=== PATIENT | female | born 1955 | race Caucasian/White ===

== ENCOUNTER 2018-11-18 21:05 | Emergency (ER) | payer MEDICAID ==
[~2018-11-18] VITALS: Wt 111.2 kg
[~2018-11-18 21:05] MED LIST: ASPRIN; ATEN-122 PO
[2018-11-18 21:10] VITALS: BP 182/101
[2018-11-18] MEDS ORDERED: KETOROLAC 30 MG INJ IM STA (21:39)
[2018-11-18] MEDS ORDERED: METHOCARBAMOL 750 MG TAB PO ONE (22:00)
[2018-11-18] MEDS ORDERED: DEXAMETHASONE 10 MG/ML 1 ML INJ IM ONE (22:00)
[2018-11-18] MEDS ORDERED: TYL500 PO (23:03)
[2018-11-18] MEDS ORDERED: IBUP-1542 PO (23:03)
[2018-11-18 23:43] VITALS: PULSE 91; RESP 20
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
== END 2018-11-18 23:38 | disposition home or self-care (01) ==
LOC: FTE 21:05
DX: M54.5 Low back pain (principal); I10 Essential (primary) hypertension; M25.561 Pain in right knee; Z79.82 Long term (current) use of aspirin
CPT/HCPCS: 72100; 73562; 93971; 96372; J1100; J1885; Z7502; Z7610

== ENCOUNTER → 2019-05-23 | Emergency (ER) | payer MEDICAID ==
[~2019-05-23] VITALS: Ht 165.1 cm; Wt 113.5 kg
[~2019-05-23] MED LIST changes: +BETA50CR5 TP; +DIPHENHYDRAMINE 25 MG CAP PO ONE; +HYDR-3029 PO; +IBUP-1542 PO; +TYL500 PO
[2019-05-23 07:55] VITALS: BP 172/86; PULSE 78; RESP 18; Ht 165.1 cm; Wt 113.5 kg
--- NOTE | 2019-05-23 09:28 | ERD ---
ER Documentation Chief Complaint Chief Complaint possible insect bites on arms and legs HPI 63-year-old female presenting with insect bites to arms and legs. Patient states she sustained these bites yesterday and they become very large and itchy. Patient has not taken any medications for the symptoms. She denies other medical problems. NKDA. Surgical history denies. Social history denies ROS All systems reviewed and are negative except as per history of present illness. Medications Home Meds Active Scripts Hydroxyzine Hcl* (Hydroxyzine Hcl*) 10 Mg Tablet, 10 MG PO Q6H PRN for ITCHING, #30 TAB Prov:JOSAFAT ASHLEY PA-C 05/23/19 Betamet Diprop/Prop Gly (Betamethasone Dp 0.05% Crm) 50 Gm Cream.gm., 50 GM TP BID, #1 Prov:JOSAFAT ASHLEY PA-C 05/23/19 Acetaminophen* (Tylenol*) 500 Mg Tab, 500 MG PO Q4H PRN for MILD PAIN LEVEL 1-3, #30 TAB Prov:PATRICK HARRISON DO 11/18/18 Ibuprofen* (Motrin*) 600 Mg Tab, 600 MG PO Q6H PRN for PAIN AND OR ELEVATED TEMP, #30 TAB Prov:PATRICK HARRISON DO 11/18/18 Reported Medications [Asprin] No Conflict Check 04/29/12 Atenolol* (Tenormin*) 50 Mg Tablet, 50 MG PO DAILY 04/29/12 Allergies Allergies: Coded Allergies: No Known Allergy (Unverified , 04/29/12) PMhx/Soc History of Surgery: No Anesthesia Reaction: No Hx Neurological Disorder: No Hx Respiratory Disorders: No Hx Cardiac Disorders: Yes (HTN) Hx Psychiatric Problems: No Hx Miscellaneous Medical Probl: No Hx Alcohol Use: No Hx Substance Use: No Hx Tobacco Use: No FmHx Family History: No diabetes, No coronary disease, No other Physical Exam Vitals Vital Signs Date Temp Pulse Resp B/P (MAP) Pulse Ox O2 O2 Flow FiO2 Time Delivery Rate 05/23/19 98.4 78 18 172/86 98 07:55 (114) Physical Exam GENERAL: The patient is well-appearing, well-nourished, in no acute distress CHEST: Clear to auscultation bilaterally. There are no rales, wheezes or rhonchi. HEART: Regular rate and rhythm. No murmurs, clicks, rubs or gallops. ABDOMEN:Soft, nontender and nondistended. Good bowel sounds. No rebound or guarding. No gross peritonitis. No gross organomegaly or masses. No Howard sign or McBurney point tenderness. SKIN: Large indurated erythematous wheals noted on bilateral lower extremities and torso. No lymphatic streaking Results 24 hrs Current Medications Medications Dose Sig/Rao Start Time Status Last (Trade) Ordered Route PRN Stop Time Admin Dose Reason Admin 25 mg ONCE ONCE 05/23/19 DC 05/23/19 Diphenhydrami PO 09:00 05/23/19 08:55 ne HCl 09:01 (Benadryl) Procedures/MDM ER course: Benadryl given in ED. MDM: 63-year-old female presenting with erythematous sites on legs and torso. Patient is having a large allergic reaction to insect bites and does not require antibiotics. Patient is told symptoms change or worsen to return immediately to the ER. Patient is discharged with strict ER precautions. All questions answered at discharge Departure Diagnosis: Primary Impression: Insect bite Condition: Stable Patient Instructions: Insect Bite Referrals: [facility] YOU HAVE RECEIVED A MEDICAL SCREENING EXAM AND THE RESULTS INDICATE THAT YOU DO NOT HAVE A CONDITION THAT REQUIRES URGENT TREATMENT IN THE EMERGENCY DEPARTMENT. FURTHER EVALUATION AND TREATMENT OF YOUR CONDITION CAN WAIT UNTIL YOU ARE SEEN IN YOUR DOCTORS OFFICE WITHIN THE NEXT 1-2 DAYS. IT IS YOUR RESPONSIBILITY TO MAKE AN APPOINTMENT FOR FOLOW-UP CARE. IF YOU HAVE A PRIMARY DOCTOR --you should call your primary doctor and schedule an appointment IF YOU DO NOT HAVE A PRIMARY DOCTOR YOU CAN CALL OUR PHYSICIAN REFERRAL HOTLINE AT IF YOU CAN NOT AFFORD TO SEE A PHYSICIAN YOU CAN CHOSE FROM THE FOLLOWING [facility] [address] [facility] [address] [facility] [address] [facility] [address] [facility]. [facility] [address] [facility]. [employer] [facility]. [address] Additional Instructions: FOLLOW UP WITH YOUR PRIMARY CARE PHYSICIAN TOMORROW.Return to this facility if you are not improving as expected. JOSAFAT ASHLEY PA-C May 23, 2019 09:28
== END | disposition home or self-care (01) ==
LOC: FTE 07:45
DX: S80.862A Insect bite (nonvenomous), left lower leg, initial encounter (principal); S80.861A Insect bite (nonvenomous), right lower leg, initial encounter; S40.861A Insect bite (nonvenomous) of right upper arm, initial encounter; S40.862A Insect bite (nonvenomous) of left upper arm, initial encounter; I10 Essential (primary) hypertension; W57.XXXA Bitten or stung by nonvenomous insect and other nonvenomous arthropods, initial encounter; Y92.9 Unspecified place or not applicable
CPT/HCPCS: 99283